=== PATIENT | male | born 1965 | race Caucasian/White ===

== ENCOUNTER 2018-10-29 16:42 | Emergency (ER) | payer SELFPAY ==
[~2018-10-29] VITALS: Ht 177.8 cm; Wt 122.7 kg
[2018-10-29 16:43] VITALS: BP 137/82
[2018-10-29] MEDS ORDERED: LISI20TA3 PO (16:57)
[2018-10-29] MEDS ORDERED: OMEP40CA2 PO (16:57)
[2018-10-29] MEDS ORDERED: CHOL50002 PO (16:57)
[2018-10-29] MEDS ORDERED: VITA500T PO (16:57)
[2018-10-29] MEDS ORDERED: SIMV40TA2 PO (16:57)
[2018-10-29] MEDS ORDERED: CITA20TA7 PO (16:57)
[2018-10-29] MEDS ORDERED: predniSONE 20 MG TAB PO ONE (17:15)
[2018-10-29] MEDS ORDERED: diphenhydrAMINE 50 MG CAP PO ONE (17:15)
[2018-10-29] MEDS ORDERED: PRED20TA PO (17:26)
[2018-10-29] MEDS ORDERED: BENA25CA4 PO (17:26)
== END 2018-10-29 17:30 | disposition home or self-care (01) ==
LOC: M ED 16:42
DX: R21 Rash and other nonspecific skin eruption (principal); L29.9 Pruritus, unspecified; T78.40XA Allergy, unspecified, initial encounter; I10 Essential (primary) hypertension; Z79.899 Other long term (current) drug therapy